=== PATIENT | female | born 1995 | race Two or more races ===

== ENCOUNTER → 2020-02-15 | Outpatient (CLI) | payer OTHER ==
--- NOTE | 2020-02-15 16:40 | RAD ---
EXAM: Obstetrics sonogram. HISTORY: anatomy survey. TECHNIQUE: Sonographic imaging of a gravid uterus was performed. COMPARISON: None. FINDINGS: There is a single intrauterine fetus in cephalic presentation with a normal heart rate of 1 39 bpm. body motion is seen. The stomach, kidneys, bladder, spine, brain, facial profile, extremities and heart are unremarkable. There is a three-vessel umbilical cord with normal insertion . The cervix is closed and measures 4.2 cm in length. The maternal adnexal regions are unremarkable. There is a grade 1 posterior placenta without evidence of placenta previa. The anatomic fluid index i s normal. The biparietal diameter is 9.30 cm, corresponding with 30 weeks and 5 days. The head circumference is 33.80 cm, corresponding with 36 weeks and 6 days. The abdominal circumference is 34.1 cm, correspond ing with 38 weeks and 0 days. The femoral length is 7.2 cm, corresponding with 36 weeks and 4 days. T he estimated gestational age patient combined ultrasound measurements is 37 weeks and 6 days and the estimated weight is 7 pounds and 4 ounces. This corresponds with the 59 percentile for an estim ated gestational age of 37 weeks and 3 days based on LMP. IMPRESSION: 1. Single intrauterine fetus with normal heart rate and gestational age patient ultrasound measuremen ts of 37 weeks and 6 days days. 2. Unremarkable anatomy survey. Electronically signed by: April Rodriguez MD (02/15/2020 4:38 PM) [id number]
== END ==
LOC: US 14:52
PROVIDERS: ATTEND Obstetrics & Gynecology
DX: Z34.93 Encounter for supervision of normal pregnancy, unspecified, third trimester (principal); Z3A.37 37 weeks gestation of pregnancy
CPT/HCPCS: 76805

== ENCOUNTER 2020-03-07 09:24 | Inpatient (IN) | payer OTHER ==
[~2020-03-07] VITALS: Ht 172.7 cm; Wt 106.0 kg
[2020-03-07 10:00] VITALS: BP 104/63
[2020-03-07] MEDS ORDERED: IV RINGERS,LACTATED 1000ML 1,000 ML IV SCH (10:45)
--- NOTE | 2020-03-07 11:13 | PDOC1 ---
[facility] H&P Date of Admission: Date of Admission: Mar 07, 2020 at 09:24 History of Present Illness: EDC: 03/04/20 LMP: 05/29/19 24y @ 40.3 by L=12 presents to L&D with ctxs. The pt was found to be dilated to 1 cm on presentation. After an hour the pt had made minimal change. Discussed d/c vs augmentation with the pt. The pt decided that she would prefer to be augmented. The pt transferred from [place] around 33wks of . The pts records only revealed a GTT of 138. She never had a 3hr GTT. The rest of her labs were repeated, with the only pos being a Chl. Her LESLEY was neg on 02/15/20. PMH: Denies PSH: Denies Meds: PNV All: NKDA OBHx: G1 SH: no tob, no EtOH FH: noncontributory Allergies: Coded Allergies: No Known Drug Allergies (Unverified , 03/07/20) Physical Exam: Vital Signs: Vital Signs Date Time Temp Pulse Resp B/P (MAP) Pulse Ox O2 Delivery O2 Flow Rate FiO2 03/07/20 10:39 98.9 98.9 03/07/20 10:00 85 20 104/63 (77) PE: GENERAL: No apparent distress. Alert and oriented. HEENT: Head normocephalic, atraumatic. NECK: Supple LUNGS: Clear to auscultation. HEART: RRR, S1, S2 present, pulses intact ABDOMEN: Soft, positive bowel sounds. EXTREMITIES: No cyanosis or edema. NEUROLOGIC: Normal speech, normal tone PSYCHIATRIC: Normal affect, normal mood. SKIN: No ulceration. FHT: 140s +acels/no decels/mLTV [place]: 2-3 min SVE: /-2 Assessment & Plan: A/P 24y @ 40.3 by L=12 1.) Latent vs active labor will start Pit for augmentation 2.) Chl pos - LESLEY neg (02/15/20) 3.) GTT 138 4.) Fetus cat I FHT 5.) GBS neg JOSE KIMBALL MD Mar 07, 2020 11:13
[2020-03-07] MEDS ORDERED: OXYTOCIN 30 UNIT/500 ML PREMIX 500 ML IV PRN ×3 (11:15→20:15)
[2020-03-07] MEDS ORDERED: TERBUTALINE 1 MG/ML VIAL. SQ PRN (11:15)
[2020-03-07] MEDS ORDERED: LIDOCAINE 1% PF 30 ML VIAL. INJ PRN (11:15)
[2020-03-07] MEDS ORDERED: 0.9 % SODIUM CHLORIDE 10 ML DISP.SYRIN. IV PRN ×2 (11:15→20:15)
[2020-03-07] MEDS ORDERED: BUTORPHANOL 2 MG/ML VIAL. IVP PRN ×2 (11:15)
[2020-03-07] MEDS ORDERED: fentaNYL PF VIAL 100 MCG/2 ML VIAL IVP PRN (11:15)
[2020-03-07] MEDS ORDERED: CITRIC ACID/SODIUM CITRATE 30 ML SOLUTION. PO PRN (11:15)
[2020-03-07 11:37] LABS: BILIRUBIN,URINE NEGATIVE (NEG); CLARITY,URINE CLEAR; COLOR,URINE YELLOW; NITRITE,URINE NEGATIVE (NEG); PROTEIN,URINE NEGATIVE (NEG-TRACE)
[2020-03-07 11:59] LABS: BACTERIA,URINE FEW /HPF (0-FEW); RBC,URINE OCC /HPF (0-2); WBC,URINE OCC /HPF (0-4)
[2020-03-07] MEDS: IV RINGERS,LACTATED 1000ML 1,000 ML IV SCH ×2 (12:05→16:01)
[2020-03-07 12:18] LABS: BASO % 0 % (0-3); EOS # 0.1 x10^3/uL (0.0-0.7); EOS % 1 % (0-3); HEMATOCRIT 36.8 % (36.0-47.0); HEMOGLOBIN 12.7 g/dL (12.0-15.5); LYMPH # 1.3 x10^3/uL (1.0-4.8); LYMPH % 12 % (24-48); MEAN CORPUSCULAR HEMOGLOBIN 30 pg (25-35); MEAN CORPUSCULAR HGB CONC 35 g/dL (31-37); MEAN CORPUSCULAR VOLUME 87 fL (79-100); MONO # 0.6 x10^3/uL (0.0-1.1); MONO % 6 % (0-9); NEUT # 8.7 x10^3/uL (1.8-7.7); NEUT % 81 % (31-73); PLATELET COUNT 181 x10^3/uL (140-400); RED BLOOD COUNT 4.24 x10^6/uL (3.50-5.40); RED CELL DISTRIBUTION WIDTH 13.6 % (11.5-14.5); WHITE BLOOD COUNT 10.7 x10^3/uL (4.0-11.0)
[2020-03-07] MEDS ORDERED: ROPIVacaine 0.2% PF 10 ML VIAL. ONE ×2 (15:34→16:00)
[2020-03-07] MEDS ORDERED: L&D EPIDURAL SYRINGE 50 ML ONE (15:35)
[2020-03-07] MEDS ORDERED: L&D EPIDURAL 50 ML SYRINGE. ONE (16:00)
[2020-03-07] MEDS ORDERED: ONDANSETRON PF 4 MG/2 ML VIAL. ONE (20:06)
--- NOTE | 2020-03-07 20:08 | PDOC ---
VAGINAL DELIVERY DATE DATE: 03/07/20 TIME: 20:06 TIME Patient delivered a viable male infant over intact perineum at 1933. Wt 9lb 0oz. Apgars 8/9. Placenta delivered spontaneously, intact with 3VC. A digital rectal exam was performed to determine if the anal sphincter was intact. There appeared to be a partial tear in the external sphincter. At that point, the gloves were changed. The free edges of the sphincter were grasped with Allis clamps. The edges were brought together with 4 figure of eight stitches of 3'0 vicryl. The 1st stitch being placed posterior, follo wed by a stitch being placed interiorly, followed by a stitch superiorly, and finally placing a stitch anteriorly. Once the sphincter was reenforced, the 2nd degree aspect of the laceration was repaired in typical fashion with 2-0 Vicryl. Good hemostasis was noted. 20 U of Pitocin were infused with IVFs. EBL was 300 mL. WEIGHT Weight [ ] JOSE KIMBALL MD Mar 07, 2020 20:08
[2020-03-07] MEDS ORDERED: MAGNESIUM HYDROXIDE 2,400 MG/30 ML ORAL.SUSP. PO PRN (20:15)
[2020-03-07] MEDS ORDERED: ONDANSETRON PF 4 MG/2 ML VIAL. IVP ONE (20:15)
[2020-03-07] MEDS ORDERED: TDaP (Adacel) per PROTOCOL. MC PRN (20:15)
[2020-03-07] MEDS ORDERED: HYDROCORTISONE 1% TOPICAL OINTMENT 30GM TUBE. TP PRN (20:15)
[2020-03-07] MEDS ORDERED: MMR per PROTOCOL. MC PRN (20:15)
[2020-03-07] MEDS ORDERED: PHENYLEPH/MINERAL OIL/PETROLAT RECTAL OINTMENT TUBE. RC PRN (20:15)
[2020-03-07] MEDS ORDERED: ZOLPIDEM 5 MG TABLET. PO PRN (20:15)
[2020-03-07] MEDS ORDERED: SIMETHICONE 80 MG TAB.CHEW PO PRN (20:15)
[2020-03-07] MEDS ORDERED: BENZOCAINE 20% TOPICAL AEROSOL SPRAY 57GM CAN. TP PRN (20:15)
[2020-03-07] MEDS ORDERED: MAG HYDROX/ALUMINUM HYD/SIMETH 30 ML ORAL.SUSP PO PRN (20:15)
[2020-03-07] MEDS ORDERED: diphenhydrAMINE HCL 25 MG CAPSULE PO PRN (20:15)
[2020-03-07] MEDS ORDERED: ACETAMINOPHEN 325 MG TABLET. PO PRN (20:15)
[2020-03-07] MEDS ORDERED: oxyCODONE/APAP 5/325 1 TAB TABLET PO PRN (20:15)
[2020-03-07] MEDS: IBUPROFEN 400 MG TABLET. PO PRN (21:25)
[2020-03-07 22:30] VITALS: BP 90/50
[2020-03-08] MEDS: IV RINGERS,LACTATED 1000ML 1,000 ML IV SCH ×3 (03:15→19:15)
[2020-03-08 03:40] VITALS: BP 99/54
[2020-03-08 07:09] LABS: HEMATOCRIT 28.2 % (36.0-47.0); HEMOGLOBIN 9.7 g/dL (12.0-15.5); RED BLOOD COUNT 3.21 x10^6/uL (3.50-5.40); RED CELL DISTRIBUTION WIDTH 13.3 % (11.5-14.5); WHITE BLOOD COUNT 10.5 x10^3/uL (4.0-11.0)
--- NOTE | 2020-03-08 08:56 | PDOC ---
EARRING MAKER PROGRESS NOTE Date of Service: DATE: 03/08/20 TIME: 08:55 Subjective: Pt with good pain control. Rober PO. Voiding. Minimal lochia. Objective: Vital Signs: Vital Signs Date Time Temp Pulse Resp B/P (MAP) Pulse Ox O2 Delivery O2 Flow Rate FiO2 03/07/20 10:00 98.9 85 20 104/63 (77) 98.9 03/07/20 22:30 96 Room Air Vital Signs Date Time Temp Pulse Resp B/P (MAP) Pulse Ox O2 Delivery O2 Flow Rate FiO2 03/08/20 03:40 97.5 92 14 99/54 (69) 99 Room Air 97.5 Labs: Laboratory Tests Test 03/07/20 09:56 03/07/20 11:08 03/07/20 11:45 03/08/20 06:40 Urine Collection Type Void Urine Color Yellow Urine Clarity Clear Urine pH 6.0 (<5.0-8.0) Urine Specific [place] 1.015 (1.000-1.030) Urine Protein Negative mg/dL (NEG-TRACE) Urine Glucose (UA) Negative mg/dL (NEG) Urine Ketones (Stick) Negative mg/dL (NEG) Urine Blood Negative (NEG) Urine Nitrite Negative (NEG) Urine Bilirubin Negative (NEG) Urine Urobilinogen Dipstick 1.0 mg/dL (0.2 mg/dL) Urine Leukocyte Esterase Negative (NEG) Urine RBC Occ /HPF (0-2) Urine WBC Occ /HPF (0-4) Urine Squamous Epithelial Cells Mod /LPF Urine Bacteria Few /HPF (0-FEW) Urine Mucus Slight /LPF SARS-CoV-2 Antigen (Rapid) Negative (NEGATIVE) White Blood Count 10.7 x10^3/uL (4.0-11.0) 10.5 x10^3/uL (4.0-11.0) Red Blood Count 4.24 x10^6/uL (3.50-5.40) 3.21 x10^6/uL (3.50-5.40) L Hemoglobin 12.7 g/dL (12.0-15.5) 9.7 g/dL (12.0-15.5) L Hematocrit 36.8 % (36.0-47.0) 28.2 % (36.0-47.0) L Mean Corpuscular Volume 87 fL (79-100) 88 fL (79-100) Mean Corpuscular Hemoglobin 30 pg (25-35) 30 pg (25-35) Mean Corpuscular Hemoglobin Concent 35 g/dL (31-37) 35 g/dL (31-37) Red Cell Distribution Width 13.6 % (11.5-14.5) 13.3 % (11.5-14.5) Platelet Count 181 x10^3/uL (140-400) 141 x10^3/uL (140-400) Neutrophils (%) (Auto) 81 % (31-73) H Lymphocytes (%) (Auto) 12 % (24-48) L Monocytes (%) (Auto) 6 % (0-9) Eosinophils (%) (Auto) 1 % (0-3) Basophils (%) (Auto) 0 % (0-3) Neutrophils # (Auto) 8.7 x10^3/uL (1.8-7.7) H Lymphocytes # (Auto) 1.3 x10^3/uL (1.0-4.8) Monocytes # (Auto) 0.6 x10^3/uL (0.0-1.1) Eosinophils # (Auto) 0.1 x10^3/uL (0.0-0.7) Basophils # (Auto) 0.0 x10^3/uL (0.0-0.2) Treponema pallidum Antibody Nonreactive (Nonreactive) Laboratory Tests 03/07/20 11:45 03/08/20 06:40 Laboratory Tests 03/08/20 06:40 Physical Exam: GENERAL: No apparent distress. Alert and oriented. HEENT: Head normocephalic, atraumatic. NECK: Supple LUNGS: Clear to auscultation. HEART: RRR, S1, S2 present, pulses intact ABDOMEN: Soft, positive bowel sounds. EXTREMITIES: No cyanosis or edema. NEUROLOGIC: Normal speech, normal tone PSYCHIATRIC: Normal affect, normal mood. SKIN: No ulceration. FFNT below umb No C/C/E Assessment & Plan: A/P 25y PPD #1 s/p 1.) PO doing well 2.) Chl pos - LESLEY neg (02/15/20) 3.) 3rd degree lac 4.) Hgb 12.7 -> 9.7 5.) Cont PP care JOSE KIMBALL MD Mar 08, 2020 08:56
[2020-03-08] MEDS: IBUPROFEN 400 MG TABLET. PO PRN ×2 (09:15→17:32)
[2020-03-08] MEDS: PRENATAL MULTIVITAMIN TABLET. PO SCH (09:15)
[2020-03-08] MEDS: FERROUS SULFATE 325 MG TABLET. PO SCH ×2 (09:16→17:32)
[2020-03-08] MEDS: DOCUSATE SODIUM 100 MG CAPSULE. PO PRN ×2 (09:16→17:32)
[2020-03-08 13:00] VITALS: BP 105/51
[2020-03-08 18:25] VITALS: BP 106/54
[2020-03-08 23:30] VITALS: BP 99/47
[2020-03-09] MEDS ORDERED: IBUP-1060 PO (05:04)
[2020-03-09] MEDS ORDERED: DOCU-109 PO (05:04)
[2020-03-09 05:15] VITALS: BP 107/44
--- NOTE | 2020-03-09 05:45 | PDOC ---
COMPENSATION DIRECTOR PROGRESS NOTE Date of Service: DATE: 03/09/20 TIME: 05:45 Subjective: Pt with good pain control. Rober PO. Voiding. Minimal lochia. Objective: Vital Signs: Vital Signs Date Time Temp Pulse Resp B/P (MAP) Pulse Ox O2 Delivery O2 Flow Rate FiO2 03/08/20 13:00 98.4 18 105/51 (69) 98 Room Air 98.4 03/08/20 18:25 104 Vital Signs Date Time Temp Pulse Resp B/P (MAP) Pulse Ox O2 Delivery O2 Flow Rate FiO2 03/09/20 05:15 98.4 98 18 107/44 (65) 95 Room Air 98.4 Labs: Laboratory Tests Test 03/08/20 06:40 White Blood Count 10.5 x10^3/uL (4.0-11.0) Red Blood Count 3.21 x10^6/uL (3.50-5.40) L Hemoglobin 9.7 g/dL (12.0-15.5) L Hematocrit 28.2 % (36.0-47.0) L Mean Corpuscular Volume 88 fL (79-100) Mean Corpuscular Hemoglobin 30 pg (25-35) Mean Corpuscular Hemoglobin Concent 35 g/dL (31-37) Red Cell Distribution Width 13.3 % (11.5-14.5) Platelet Count 141 x10^3/uL (140-400) Laboratory Tests 03/08/20 06:40 Laboratory Tests 03/08/20 06:40 Physical Exam: GENERAL: No apparent distress. Alert and oriented. HEENT: Head normocephalic, atraumatic. NECK: Supple LUNGS: Clear to auscultation. HEART: RRR, S1, S2 present, pulses intact ABDOMEN: Soft, positive bowel sounds. EXTREMITIES: No cyanosis or edema. NEUROLOGIC: Normal speech, normal tone PSYCHIATRIC: Normal affect, normal mood. SKIN: No ulceration. FFNT below umb No C/C/E Assessment & Plan: A/P 25y PPD #2 s/p 1.) PO doing well 2.) Covid PCR screen positive asx 3.) Chl pos - LESLEY neg (02/15/20) 4.) 3rd degree lac 5.) Hgb 12.7 -> 9.7 6.) D/c home JOSE KIMBALL MD Mar 09, 2020 05:45
--- NOTE | 2020-03-09 05:57 | DS ---
DATE OF DISCHARGE: 03/09/2020 ADMISSION DIAGNOSES: 1. Intrauterine at 40 weeks and 3 days by LMP equal to 12-week ultrasound. 2. Latent labor versus active labor. 3. Chlamydia positive with negative treatment of cure. 4. Glucose tolerance test of 138. 5. GBS negative. DISCHARGE DIAGNOSES: 1. Intrauterine at 40 weeks and 3 days by LMP equal to 12-week ultrasound. 2. Latent labor versus active labor. 3. Chlamydia positive with negative treatment of cure. 4. Glucose tolerance test of 138. 5. GBS negative. 6. Third-degree laceration. 7. COVID positive. PROCEDURE: Spontaneous vaginal delivery. BRIEF HOSPITAL COURSE: The patient is a 25-year-old 1, para 0 who presented to Labor and Delivery at 40 weeks and 3 days by LMP equal to a 12-week ultrasound with contractions. The patient was found to be 1 cm dilated on presentation. After an hour's time, the patient made minimal change. We discussed augmentation with the patient, who desired to proceed with augmentation. The patient was started on Pitocin and ultimately delivered by vaginal delivery, see delivery note for full detail. By day #1, the patient was found to have a hemoglobin of 9.7 from her admission hemoglobin of 12.7, and by day #2, the patient was meeting all discharge criteria. Her rapid COVID on admission was negative, but her PCR ultimately returned positive on day #2, so the patient was placed in isolation until discharge. DISCHARGE INSTRUCTIONS: The patient was told not to lift anything greater than 20 pounds, have pelvic rest for 6 weeks. The patient was to call if she had fevers, chills, nausea, vomiting, abdominal pain or any additional questions or concerns. FOLLOWUP APPOINTMENT: The patient is to follow up on 04/18/2020 at 1:15 p.m. for her appointment. DISCHARGE MEDICATIONS: The patient was given a prescription for Motrin 800 mg 30 pills and Colace 100 mg 30 pills. JOSE KIMBALL MD DR: YEIMI/[email or web address] JOB#: [id number] / [id number] ELVIRA
[2020-03-09] MEDS: DOCUSATE SODIUM 100 MG CAPSULE. PO PRN (08:27)
[2020-03-09] MEDS: PRENATAL MULTIVITAMIN TABLET. PO SCH (08:27)
[2020-03-09] MEDS: FERROUS SULFATE 325 MG TABLET. PO SCH (08:27)
[2020-03-09] MEDS: IBUPROFEN 400 MG TABLET. PO PRN (08:28)
[2020-03-09 15:15] VITALS: BP 118/70
== END 2020-03-09 15:15 | disposition home or self-care (01) | DRG 768 ==
LOC: 3 SO LND 09:24 → OBSVTOIN 11:11 → 3 NORTH 22:20
PROVIDERS: ADMIT Obstetrics & Gynecology; ATTEND Obstetrics & Gynecology
PROC: 10E0XZZ Delivery of Products of Conception, External Approach (ICD-10-PCS; principal; 2020-03-07)
PROC: 0DQR0ZZ Repair Anal Sphincter, Open Approach (ICD-10-PCS; 2020-03-07)
DX: O98.52 Other viral diseases complicating childbirth (principal); Z37.0 Single live birth; U07.1 COVID-19; O70.20 Third degree perineal laceration during delivery, unspecified; O98.82 Other maternal infectious and parasitic diseases complicating childbirth; Z3A.40 40 weeks gestation of pregnancy; O99.52 Diseases of the respiratory system complicating childbirth; J98.8 Other specified respiratory disorders
CPT/HCPCS: 36415; 81001; 85025; 85027; 86592; 86850; 86900; 86901; 87426; G0378; G0379; J2405; J2590; J2795; J3010; J7120; U0003